=== PATIENT | female | born 1930 | race Caucasian/White ===

== ENCOUNTER 2020-06-11 17:14 | Emergency (ER) | payer MEDICARE ==
[~2020-06-11 17:14] MED LIST: ACID CONTROLLER20 MG PO; ALENDRONATE SOD70 MG PO; COZAAR50 MG PO; ELIQUIS2.5 MG PO; LIPITOR 10MG TA10 MG PO; NORVASC5 MG PO; POTASSIUM20 MEQ/11 PO; TENORMIN50 MG PO
[2020-06-11 19:01] LABS: BASOPHIL 0.8 % (0-2); EOSINOPHIL 1.4 % (0-7); HCT 43.9 % (37.0-47.0); HGB 14.4 g/dl (12.5-16.0); LYMPHOCYTE 28.5 % (15-48); MCH 28.2 pg (25.0-31.0); MCHC 32.8 g/dL (32.0-36.0); MCV 86.1 fL (78.0-100.0); MONOCYTE 14.2 % (0-12); MPV 9.2 fL (6.0-9.5); NEUTROPHIL 54.8 % (41-80); NRBC 0; PLT 193 K/uL (150-400); RDW 13.1 % (11.5-14.0); WBC 6.3 K/uL (4.0-10.5)
[2020-06-11 19:10] LABS: INR 1.17 (0.9-1.2); PROTHROMBIN TIME 14.1 SECONDS (11.4-13.6)
[2020-06-11 19:17] LABS: ALBUMIN 3.9 g/dL (3.4-5.0); BILIRUBIN - TOTAL 0.5 mg/dL (0.2-1.0); BUN/CREAT RATIO (CALC) 21.3 RATIO; CREATININE 0.94 mg/dL (0.51-0.95); GLOBULIN (CALCULATION) 3.8 g/dL; POTASSIUM 3.6 mmol/L (3.5-5.1); TOTAL PROTEIN 7.7 g/dL (6.4-8.2)
== END 2020-06-11 21:22 | disposition home or self-care (01) ==
LOC: FER 17:14
PROVIDERS: Emergency Medicine
DX: M79.622 Pain in left upper arm (principal); E11.9 Type 2 diabetes mellitus without complications; I50.9 Heart failure, unspecified; I48.91 Unspecified atrial fibrillation; Z79.899 Other long term (current) drug therapy; Z88.1 Allergy status to other antibiotic agents; Z91.041 Radiographic dye allergy status; Z95.0 Presence of cardiac pacemaker; Z79.01 Long term (current) use of anticoagulants; Z88.8 Allergy status to other drugs, medicaments and biological substances
CPT/HCPCS: 36415; 71045; 80053; 84484; 85025; 85610; 85730; 93005